=== PATIENT | male | born 1995 | race American Indian/Alaskan Native ===

== ENCOUNTER 2019-08-18 21:07 | Emergency (ER) | payer SELFPAY ==
[2019-08-18 21:31] VITALS: BP 140/83
--- NOTE | 2019-08-19 01:23 | XRay Report ---
LEFT HUMERUS 2 VIEWS INDICATION / CLINICAL INFORMATION: Distal left humerus pain COMPARISON: None available. FINDINGS: BONES and JOINT(S): No acute fracture or subluxation. No significant arthritis. SOFT TISSUES: No significant abnormality. ADDITIONAL FINDINGS: None. IMPRESSION: No significant abnormality of the left humerus. Signer Name: John Barrera MD Signed: 08/19/2019 1:19 AM Workstation Name: [id number]
[2019-08-19] MEDS ORDERED: KETOROLAC 30 MG/1 ML INJ IM ONE (01:49)
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
== END 2019-08-19 02:12 | disposition home or self-care (01) ==
LOC: ED 21:07
DX: M79.602 Pain in left arm (principal); R20.2 Paresthesia of skin; F12.10 Cannabis abuse, uncomplicated; Z79.1 Long term (current) use of non-steroidal anti-inflammatories (NSAID); V49.49XA Driver injured in collision with other motor vehicles in traffic accident, initial encounter; Y93.89 Activity, other specified; Y92.488 Other paved roadways as the place of occurrence of the external cause; Y99.8 Other external cause status
CPT/HCPCS: 73060; 96372; 99284; J1885